=== PATIENT | male | born 1995 | race Caucasian/White ===

== ENCOUNTER 2020-01-18 23:44 | Emergency (ER) | payer BC ==
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
== END 2020-01-19 02:50 | disposition home or self-care (01) ==
LOC: ERS 23:44
DX: S09.90XA Unspecified injury of head, initial encounter (principal); E78.5 Hyperlipidemia, unspecified; J45.909 Unspecified asthma, uncomplicated; V43.52XA Car driver injured in collision with other type car in traffic accident, initial encounter
CPT/HCPCS: 70450; 72125